=== PATIENT | male | born 1960 | race African-American/Black ===

== ENCOUNTER 2019-07-21 07:42 | Outpatient (CLI) | payer OTHER, SELFPAY ==
[2019-07-11 09:01] VITALS: BMI 25.4
--- NOTE | ~2019-07-21 | XR_ITS ---
EXAMINATION: XR lumbar puncture diagnostic EXAM DATE: 07/21/2019 10:41 INDICATION: Paresthesias. Clinical concern for multiple sclerosis. TECHNIQUE: Procedure performed and completed on 07/21/2019 10:41. Informed consent was obtained from the patient for doing this procedure. I discussed benefits and risks including bleeding, infection, backache and headache. Alternatives also discussed. The DAP for this procedure was 10.6 Gycm2. A timeout procedure was performed. The lower back was prepped in standard sterile fashion. There are total of 3 approaches made to the spinal canal. Initially left L5-S1 approach was attempted , infiltrated with 3 mL of 1% lidocaine. Needle was advanced without difficulty, and a crosstable lat eral projection confirm tip projecting over the spinal canal on both the frontal and lateral projecti ons. No CSF freely flowed. This needle was then removed. Left L4-5 level was then infiltrated with 2 mL 1% lidocaine. Needle was then advanced to expected dep th the spinal canal, until patient said he did feel a sensation in his left leg. No CSF freely flowed . Table was placed in reverse Trendelenburg and still no CSF flow. This needle was removed. Right L4-5 level was infiltrated with 2 additional milliliters of 1% lidocaine. Needle was advanced w ithout difficulty to expected depth. Patient stated he felt a sensation in his right leg which genera lly indicates needle tip position within the spinal canal. No CSF flowed, reverse Trendelenburg was t ried with still no CSF. A crosstable lateral projection confirmed tip projecting over the spinal james l on both the frontal and lateral projections. This needle was then removed. Patient was instructed that if additional attempts were made, to please bring imaging of lumbar spine if available so we can evaluate any extraordinary amount of epidural fat or other possible explanati on for unsuccessful attempts. Patient was sent to recovery without any immediate complications. FINDINGS: Images demonstrate needle overlying expected location of the spinal canal. IMPRESSION: Unsuccessful attempts at obtaining CSF, could be due to low CSF pressure, but reversed T rendelenburg was also attempted along with Valsalva maneuvers. Reviewed, dictated and finalized at location A. RINTENDENT TRACK IMPRESSION: Unsuccessful attempts at obtaining CSF, could be due to low CSF pr essure, but reversed Trendelenburg was also attempted along with Valsalva maneu vers.
[2019-07-21 08:09] LABS: Hematocrit 41.4 % (42.0-52.0); Hemoglobin 13.9 g/dL (14.0-18.0); Mean Corpuscular HGB Conc 33.6 g/dl (32-36); Mean Corpuscular Hemoglobin 29.5 pg (26-34); Mean Corpuscular Volume 87.9 fl (80-100); Mean Platelet Volume 9.7 fl (7.4-10.4); Platelet Count Result 289 k/mm3 (150-375); Red Blood Count 4.71 M/mm3 (4.6-6.20); White Blood Count 7.4 K/mm3 (4.5-10.0)
[2019-07-21 08:19] LABS: INR 0.9
[2019-07-21 10:40] VITALS: BP 159/82; PULSE 66; RESP 20; O2SAT 98
[2019-07-21 10:45] VITALS: BP 149/92; PULSE 16; RESP 74; O2SAT 16
[2019-07-21 10:47] VITALS: BP 144/80; PULSE 65; RESP 16; O2SAT 96
[2019-07-21 11:40] VITALS: BP 172/96; PULSE 68; RESP 20
--- NOTE | 2019-07-21 11:54 | SUR.PHASEII ---
1155 spoke with pt ride(med car) pt will be ready in about 20 minutes
--- NOTE | 2019-07-21 12:19 | SUR.PHASEII ---
1210 pt doing well, no pain, normal breathing, per dr marcos pt is ok for discharge
[2019-07-23 13:54] LABS: Angiotensin Converting Enzyme 12 U/L (9-67)
== END 2019-07-21 12:19 | disposition home or self-care (01) ==
PROVIDERS: Psychiatry & Neurology Neurology; Visit Provider Radiology Diagnostic Radiology
DX: G35 Multiple sclerosis (principal)
CPT/HCPCS: 36415; 62328; 82040; 82042; 82164; 82784; 83873; 83916; 85027; 85610